=== PATIENT | male | born 1990 | race Caucasian/White ===

== ENCOUNTER 2016-09-05 03:23 | Emergency (ER) | payer OTHER ==
[2016-09-05 03:38] VITALS: BP 121/76; PULSE 68; TEMP 97.7; BMI 33.9
--- NOTE | 2016-09-05 04:10 | PDOC ---
History of Present Illness - General History Source: Patient Exam Limitations: No Limitations - History of Present Illness Initial Comments: 09/05/16 04:18 The patient is a 26 year old male with no significant past medical history who presents to the ED for chest pain that began 3 hours prior to arrival. Patient reports he was in his usual state of health prior to going to bed when he was awoken about 3 hours ago for chest pain. States his pain is in the epigastric region that wraps around his back and feels like a burp that tightens up. He reports associated nausea, but no vomiting. States he has had chest pain in the past, but never like this. His pain is not reproducible. Denies lightheadedness , diaphoresis, SOB, palpitations, jaw pain, shoulder pain, or arm pain. States he did not take any medications for his symptoms. Patient admits to being overweight. No sick contacts or recent travels. The patient denies fever, chills, cough, and diarrhea. Allergies: NKDA Social History: Denies alcohol, tobacco, or drug use. Family History: Denies Past Surgical History: appendectomy PCP: Dr. Tierra Cadet <Trang Whitfield - Last Filed: 09/05/16 04:18> - General History Source: Patient <NarayanJeff - Last Filed: 09/05/16 05:32> - General Chief Complaint: Chest Pain Stated Complaint: TIGHTNESS OF BACK AND CHEST Time Seen by Provider: 09/05/16 04:10 Past History <Trang Whitfield - Last Filed: 09/05/16 04:18> - Surgical History Appendectomy: Yes - Psycho/Social/Smoking Cessation Hx Anxiety: No Suicidal Ideation: No Smoking Status: Yes Smoking History: Never smoked Have you smoked in the past 12 months: No Number of Cigarettes Smoked Daily: 5 If you are a former smoker, when did you quit?: MONTHS Information on smoking cessation initiated: No 'Breaking Loose' booklet given: 03/13/15 Hx Alcohol Use: No Drug/Substance Use Hx: No Substance Use Type: None <Jeff Kay - Last Filed: 09/05/16 05:32> - Past Medical History Allergies/Adverse Reactions: Allergies Allergy/AdvReac Type Severity Reaction Status Date / Time No Known Allergies Allergy Verified 03/13/15 10:18 Home Medications: Ambulatory Orders No Home Medications 0 dose .ROUTE UTDICT 08/20/12 Ondansetron [Zofran *Odt*] 4 mg SL TID #30 od.tablet 09/05/16 Review of Systems - Review of Systems Able to Perform ROS?: Yes Comments:: 09/05/16 04:18 CONSTITUTIONAL: Absent: fever, no chills, no fatigue EYES: Absent: visual changes ENT: Absent: ear pain, no sore throat CARDIOVASCULAR: +chest pain in the epigastric region that wraps around the back Absent: no palpitations RESPIRATORY: Absent: cough, no SOB GI: +nausea Absent: no vomiting, no constipation, no diarrhea GENITOURINARY: Absent: dysuria, no frequency, no hematuria MUSCULOSKELETAL: Absent: no arthralgia, no myalgia SKIN: Absent: rash NEURO: Absent: headache <Trang Whitfield - Last Filed: 09/05/16 04:18> *Physical Exam - Vital Signs Last Vital Signs Temp Pulse Resp BP Pulse Ox 97.7 F 68 19 121/76 98 09/05/16 03:36 09/05/16 03:36 09/05/16 03:36 09/05/16 03:36 09/05/16 03:36 - Physical Exam Comments: 09/05/16 04:18 GENERAL: Well-appearing, well-nourished. No apparent distress. HEENT: Normocephalic, atraumatic. PERRL, EOM intact. CARDIOVASCULAR: Normal S1, S2. Regular rate and rhythm. PULMONARY: Clear to auscultation bilaterally. ABDOMEN: Soft, non-distended, non-tender. EXTREMITIES: Normal ROM in all four extremities. No gross deformities. SKIN: Warm, dry. No rash NEUROLOGICAL: No focal neurological deficits. <Trang Whitfield - Last Filed: 09/05/16 04:18> - Vital Signs Last Vital Signs Temp Pulse Resp BP Pulse Ox 97.7 F 68 19 121/76 98 09/05/16 03:36 09/05/16 03:36 09/05/16 03:36 09/05/16 03:36 09/05/16 03:36 <Jeff Kay - Last Filed: 09/05/16 05:32> Heart Score/ECG Review - ECG Impressions Comment:: 09/05/16 04:19 NSR @63bpm Normal ECG <Trang Whitfield - Last Filed: 09/05/16 04:18> ED Treatment Course - LABORATORY CBC & Chemistry Diagram: 09/05/16 04:41 09/05/16 04:41 <Jeff Kay - Last Filed: 09/05/16 05:32> Medical Decision Making - Medical Decision Making 09/05/16 05:30 Dr. Kay: The scribe's documentation has been prepared under my direction and personally reviewed by me in its entirery. I confirm that the note above accurately reflects all work, treatment, procedures, and medical decision making performed by me. <Jeff Kay - Last Filed: 09/05/16 05:32> *DC/Admit/Observation/Transfer - Attestations Scribe Attestion: 09/05/16 04:19 Documentation prepared by Trang Whitfield, acting as medical radiation therapist for Jeff Kay MD/DO. <Trang Whitfield - Last Filed: 09/05/16 04:18> - Discharge Dispostion Admit: No <Jeff Kay - Last Filed: 09/05/16 05:32> Diagnosis at time of Disposition: Nausea Chest pain Qualifiers: Chest pain type: unspecified Qualified Code(s): R07.9 - Chest pain, unspecified - Discharge Dispostion Disposition: HOME Condition at time of disposition: Stable - Referrals Referrals: Tierra Cadet MD [Primary Care Provider] - - Patient Instructions Printed Discharge Instructions: DI for Chest Pain, DI for Nausea -- Adult Additional Instructions: Please follow up with your doctor as needed. Return here if symptoms become worse. Use medication as directed. - Post Discharge Activity Work/School Note: Back to Work
[2016-09-05] MEDS ORDERED: ONDANSETRON *ODT* 4 MG TABLET SL ONE (04:12)
[2016-09-05] MEDS ORDERED: ONDANSETRON *ODT* 4 MG TABLET ONE (04:38)
[2016-09-05 04:52] LABS: BASOPHIL 0.4 % (0-2.0); EOSINOPHIL 1.7 % (0-4.5); MCH 26.8 pg (25.7-33.7); MCHC 32.9 g/dl (32.0-35.9); MEAN CELL VOLUME 81.6 fl (80-96); MEAN PLT VOLUME 7.8 fl (7.5-11.1); PLATELET COUNT 288 K/MM3 (134-434); RDW 14.7 % (11.9-15.9); WHITE BLOOD COUNT 9.6 K/mm3 (4.0-10.0)
[2016-09-05 05:04] LABS: MAGNESIUM 2.3 mg/dL (1.8-2.4)
[2016-09-05 05:11] LABS: ALBUMIN 3.8 g/dl (3.4-5.0); ANION GAP 12 (8-16); BILIRUBIN,TOTAL 0.6 mg/dL (0.2-1.0); CALCIUM 8.6 mg/dL (8.5-10.1); CO2 25 mmol/L (21-32); COCKROFT - GAULT 260.99; CREATININE 0.7 mg/dL (0.7-1.3); GLUCOSE,RANDOM 111 mg/dL (74-106); SGOT/AST 24 U/L (15-37); SGPT/ALT 64 U/L (12-78); TOT PROT 7.6 g/dl (6.4-8.2)
[2016-09-05 05:13] LABS: ALK PHOS 95 U/L (45-117); TROPONIN I < 0.02 ng/ml (0.00-0.05)
--- NOTE | 2016-09-05 13:07 | EKG ---
Test Reason : Blood Pressure : / mmHG Vent. Rate : 063 BPM Atrial Rate : 063 BPM P-R Int : 174 ms QRS Dur : 092 ms QT Int : 378 ms P-R-T Axes : 011 037 038 degrees QTc Int : 386 ms NORMAL SINUS RHYTHM NORMAL ECG NO PREVIOUS ECGS AVAILABLE Confirmed by LIN ALFARO MD ([id number]) on 09/05/2016 1:07:18 PM Referred By: Confirmed By:LIN ALFARO MD
== END 2016-09-05 05:36 | disposition home or self-care (01) ==
LOC: JER 03:23
DX: R07.9 Chest pain, unspecified (principal); R11.0 Nausea
CPT/HCPCS: 36415; 80053; 82550; 83690; 83735; 84484; 85025; 93005; 93010; 99282-25